=== PATIENT | female | born 1970 | race Caucasian/White ===

== ENCOUNTER 2016-10-10 17:17 | Emergency (ER) | payer OTHER ==
[2016-10-10] MEDS ORDERED: LORazepam 2 MG/ML INJ IVP ONE ×3 (17:28→19:15)
--- NOTE | 2016-10-10 17:34 | EDPHY ---
H & P HPI/ROS: This patient takes metformin and typically takes 2000 mg once -4 500 mg tabs. Today she but all for her mouth and tried to swallow and reports a feeling of esophageal impaction. She describes pain in the upper esophagus/lower pharyngeal region points to her neck. She describes the pain as peaking 8/10 crampy in nature coming in waves. She is unable to swallow fluids since the incident shortly prior to arrival. She has had some gagging but no vomiting. She thinks that she could feel 1 of the pills or upper pharynx when she tried to gag herself earlier. She now reports that she can hear the pills dissolving her Lower pharynx /upper esophagus. She has had previous esophageal impaction and history of GERD but reports that about a year ago she had upper endoscopy after a previous episode of soft stool food impaction that revealed no significant esophageal strictures, esophagitis or other abnormal findings. The patient drove herself here by private vehicle for evaluation but reports that a friend is coming to accompany her here soon. ROS: Psychiatric: Patient is anxious due to this symptom. Pulmonary: No shortness of breath or aspiration. Cardiovascular: No lightheadedness GI: No vomiting. 7 point ROS is otherwise negative. Past Medical/Surgical History: Chronic neuropathic cervical pain Type 2 diabetes Hypothyroid Smoking Status: Never smoked Physical Exam: General Appearance: Alert, no distress. Eyes: Pupils equal and round no pallor or injection. ENT, Mouth: Mucous membranes moist.Oropharynx: No visible foreign bodies erythema or dysphonia. The patient is spitting into a cup reporting that she does not feel she can swallow her secretions. I do hear the sound of dissolving pills when she opens her mouth. Respiratory: There are no retractions, lungs are clear to auscultation. Cardiovascular: Regular rate and rhythm. No murmur gallop rub Gastrointestinal: Abdomen is soft and nontender, no masses, bowel sounds normal. Neurological: GCS 15 with no focal sensory or motor deficits. Skin: Warm and dry, no rashes. Musculoskeletal: Neck is supple nontender. Extremities are symmetrical, full range of motion. Psychiatric: Mood and affect normal DIFFERENTIAL DIAGNOSIS: After history and physical exam differential diagnosis was considered for esophageal food impaction, esophageal spasm versus stricture , anxiety Constitutional: Initial Vital Signs Temperature (C) 36.7 C 10/10/16 17:23 Heart Rate 85 10/10/16 17:23 Respiratory Rate 18 06/25/17 17:23 Blood Pressure 133/88 H 10/10/16 17:23 O2 Sat (%) 95 10/10/16 17:23 O2 Delivery Mode Room Air O2 (L/minute) 2 Allergies/Adverse Reactions: Pinenuts Allergy (Uncoded 10/10/16 17:23) Home Medications: Medication Instructions Recorded Cymbalta 60 MG (RX) 04/28/14 Ethinyl Estradiol/Drospirenone 04/28/14 [Marip[place] 28 Tablet] Hydrocodone Bit/Acetaminophen 04/28/14 [Hydrocodon-Acetaminoph 7.5-750] LEVOTHYROXINE SODIUM 04/28/14 Vivance 04/28/14 oxyCODONE CR [Oxycontin] 04/28/14 Pantoprazole Sodium [Protonix 40mg 40 mg PO DAILY #14 tab 10/10/16 (*)] MDM/Departure - MDM Medications Given: Discontinued Medications Al Hydroxide/Mg Hydroxide (Maalox Susp) 30 ml PO EDNOW ONE Stop: 10/10/16 20:08 Last Admin: 10/10/16 20:09 Dose: 30 ml Glucagon (Glucagen) 1 mg IVP EDNOW ONE Stop: 10/10/16 17:55 Last Admin: 10/10/16 18:16 Dose: 1 mg Glucagon (Glucagen) 1 mg IVP ONCE ONE Stop: 10/10/16 19:05 Last Admin: 10/10/16 19:10 Dose: 1 mg Lorazepam (Ativan Injection) 1 mg IVP EDNOW ONE Stop: 10/10/16 17:29 Last Admin: 10/10/16 17:39 Dose: 1 mg Lorazepam (Ativan Injection) 1 mg IVP EDNOW ONE Stop: 10/10/16 17:53 Last Admin: 10/10/16 18:00 Dose: 1 mg Lorazepam (Ativan Injection) 1 mg IVP EDNOW ONE Stop: 10/10/16 19:16 Last Admin: 10/10/16 19:21 Dose: 1 mg Morphine Sulfate (Morphine) 4 mg IVP EDNOW ONE Stop: 10/10/16 19:17 Last Admin: 10/10/16 19:28 Dose: 4 mg ED Course/Re-evaluation: IV is established, patient is placed on O2 sat monitor and given 1 mg of Ativan IV. She reports that she has a high tolerance due to taking clonazepam 0.5 mg regularly. a repeat dose of 1 mg Ativan is given 15 minutes after the initial dose. At 6:20 twenty p.m. patient still has ongoing symptoms despite the Ativan, so I proceeded with IV glucagon -1 mg slow IV push We then proceeded with an additional 1 mg of glucagon and 4 mg of morphine still without relief. The patient still spitting secretions and reporting that she still has the esophageal pill impaction. At 10 till 8:00 p.m. I spoke with Dr. Yolette Best E -GI specialist on-call who agrees with plan to transfer the patient to [facility] Emergency Department for definitive procedure. I spoke with Dr. Barby Sheldon, emergency physician at [facility] accepts the patient for transfer shortly after this phone call, the patient had resolution of the impaction. She is able to swallow and then swallow fluids without difficulty. She is given Maalox for comfort. We canceled the plan for transfer. She will proceed home with a plan to avoid attempting to swell large objects like this in the future and follow up with GI for any ongoing symptoms. I will start a place her on Protonix for GERD. At the time discharge the patient is stable and comfortable, tolerating p.o. fluids without difficulty & her friend came to drive her home. - Depart Disposition: Home, Routine, Self-Care Clinical Impression: Esophageal pill impaction Condition: Good Instructions: Esophageal Foreign Body (ED) Additional Instructions: diagnosis: Esophageal pill impaction Plan: after medications your able swallow your pills. Plan: Avoid swelling large objects and future Protonix or Prilosec 40 mg a day for the next week or 2 Maalox for discomfort if needed Follow up with Dr. siddiqui -GI specialist for any ongoing symptoms. Prescriptions: Pantoprazole Sodium [Protonix 40mg (*)] 40 mg PO DAILY #14 tab Referrals: NONE *PRIMARY CARE P,. [Primary Care Provider] - As per Instructions Yolette Best MD [Medical Doctor] - As per Instructions
[2016-10-10] MEDS ORDERED: GLUCAGON,HUMAN RECOMBINANT 1 MG VIAL IVP ONE ×2 (17:54→19:04)
[2016-10-10 20:02] VITALS: RESP 16
[2016-10-10] MEDS ORDERED: MAG HYDROX/AL HYDROX/SIMETH 30 ML UDCUP PO ONE (20:07)
[2016-10-10 20:43] VITALS: BP 120/83; PULSE 75; TEMP 98.1; O2SAT 94
== END 2016-10-10 20:42 | disposition home or self-care (01) ==
LOC: CED 17:17
DX: T18.198A Other foreign object in esophagus causing other injury, initial encounter (principal); E11.9 Type 2 diabetes mellitus without complications; X58.XXXA Exposure to other specified factors, initial encounter
CPT/HCPCS: 96374; J1610; J2060

== ENCOUNTER 2017-02-27 10:48 | Emergency (ER) | payer OTHER ==
[2017-02-27 11:01] VITALS: RESP 18
[2017-02-27] MEDS ORDERED: IPRATROPIUM/ALBUTEROL 3 ML DEYVIAL IH ONE (11:04)
[2017-02-27] MEDS ORDERED: ACETAMINOPHEN 500 MG TAB PO ONE (11:04)
--- NOTE | 2017-02-27 11:10 | EDPHY ---
H & P Stated Complaint: fever and congestion started tuesday, fever high of 103f Time Seen by Provider: 02/27/17 10:52 HPI/ROS: Chief Complaint: Fever, cough HPI: 46-year-old woman history of asthma and possible rheumatoid arthritis presenting with 2 days of fever, worsening body aches and cough productive of greenish sputum. She usually only takes albuterol for her asthma. Is supposed to be on inhaled steroids but has not been taking them. Has measured fever to 102.8 at home. Has had generalized myalgias. Has a history of chronic pain but her pain is worse than normal. No nausea or vomiting. No chest pain. No diarrhea. No headache. ROS: 10 point Review of Systems is negative except as noted in the HPI. PMH: Asthma, chronic pain, cervical fusion, cervical radiculopathy Social History: No smoking, occasional alcohol, no recreational drug use Family History: non-contributory Physical Exam: Gen: Awake, Alert, No Distress HEENT: Nose: no rhinorrhea Eyes: PERRLA, EOMI Mouth: Moist mucosa Neck: Supple, no JVD Chest: nontender, diffuse expiratory wheezes, no focal rales or rhonchi Heart: S1, S2 normal, no murmur Abd: Soft, non-tender, no guarding Back: no CVA tenderness, no midline tenderness Ext: no edema, non-tender Skin: no rash Neuro: CN II-XII intact, Sensation grossly intact, Strength 5/5 in bilateral upper and lower extremities - Personal History LMP (Females 10-55): 22-28 Days Ago - Medical/Surgical History Hx Asthma: Yes Hx Chronic Respiratory Disease: No Hx Diabetes: No Hx Cardiac Disease: No Hx Renal Disease: No Hx Cirrhosis: No Hx Alcoholism: No Hx HIV/AIDS: No Hx Splenectomy or Spleen Trauma: No Other PMH: 2 neck fusions,2 hips surgeries,bunion surgery,heel surgery, asthma. thyroid, autoimmune infammatory arthritis, chronic nerve pain, PCO, ADHD, type 2 diabetes - Social History Smoking Status: Never smoked Constitutional: Initial Vital Signs Temperature (C) 39.4 C H 02/27/17 10:58 Heart Rate 104 H 02/27/17 10:58 Respiratory Rate 18 02/27/17 10:58 Blood Pressure 133/90 H 02/27/17 10:58 O2 Sat (%) 95 02/27/17 10:58 O2 Delivery Mode Room Air Allergies/Adverse Reactions: Pinenuts Allergy (Uncoded 10/10/16 17:23) Home Medications: Medication Instructions Recorded Cymbalta 60 MG (RX) 04/28/14 Ethinyl Estradiol/Drospirenone 04/28/14 [[place] 28 Tablet] Hydrocodone Bit/Acetaminophen 04/28/14 [Hydrocodon-Acetaminoph 7.5-750] LEVOTHYROXINE SODIUM 04/28/14 oxyCODONE CR [Oxycontin] 04/28/14 Pantoprazole Sodium [Protonix 40mg 40 mg PO DAILY #14 tab 10/10/16 (*)] AZITHROMYCIN [Z-PACK] 250 mg PO DAILY #6 tab 02/27/17 Albuterol [Proventil Inhaler HFA 1 - 2 puffs IH Q4H PRN #1 mdi 02/27/17 (*)] Clonazepam 02/27/17 Inhaler, Assist Devices [Space 1 each MC Q4H PRN #1 spacer 02/27/17 Chamber Plus] VYVANSE 02/27/17 Medical Decision Making - Diagnostics Imaging Results: Imaging Impressions Chest X-Ray 02/27/17 11:03 Impression: Right upper lobe pneumonia.. ED Course/Re-evaluation: Flu swab is negative. Chest x-ray consistent with right upper lobe pneumonia. Will start him on azithromycin. She is not hypoxemic.. She will continue on her usual asthma medications. She will follow up with primary care physician in 2-3 days for re-evaluation. - Data Points Laboratory Results: 02/27/17 02/27/17 11:05 11:05 Nasal Influenza A PCR Pending Nasal Influenza B PCR Pending Influenza A,B Rapid NEGATIVE FOR FLU (NEGATIVE) Medications Given: Discontinued Medications Acetaminophen (Tylenol) 1,000 mg PO EDNOW ONE Stop: 02/27/17 11:05 Last Admin: 02/27/17 11:07 Dose: 1,000 mg Albuterol/Ipratropium (Duoneb) 3 ml IH EDNOW ONE Stop: 02/27/17 11:05 Last Admin: 02/27/17 11:08 Dose: 3 ml Departure - Departure Disposition: Home, Routine, Self-Care Clinical Impression: Pneumonia Condition: Good Instructions: Pneumonia (ED) Additional Instructions: Alternate acetaminophen (1000 mg) with ibuprofen (400 mg) every 4 hours as needed for fevers, chills, aches or pains. Make sure to take your full course of antibiotics. You may use your albuterol inhaler with a spacer 1-2 puffs every 2-4 hours as needed for wheeze. Follow up with primary care physician in 2-3 days for re-evaluation. Return to the emergency department for increasing shortness of breath, fevers, chills, chest pain, weakness, or any other concerns. Referrals: Marlene Jenkins MD [Primary Care Provider] - As per Instructions Prescriptions: Albuterol [Proventil Inhaler HFA (*)] 1 - 2 puffs IH Q4H PRN #1 mdi PRN Reason: Wheezing AZITHROMYCIN [Z-PACK] 250 mg PO DAILY #6 tab Inhaler, Assist Devices [Space Chamber Plus] 1 each MC Q4H PRN #1 spacer PRN Reason: Wheezing
[2017-02-27] MEDS ORDERED: AZITHROMYCIN 250 MG TAB PO ONE (11:34)
[2017-02-27 14:29] VITALS: BP 112/79; PULSE 110; TEMP 101.3; O2SAT 94
== END 2017-02-27 11:53 | disposition home or self-care (01) ==
LOC: CED 10:48
DX: J18.9 Pneumonia, unspecified organism (principal); J45.909 Unspecified asthma, uncomplicated; E11.9 Type 2 diabetes mellitus without complications
CPT/HCPCS: 71020-PO; 87400-PO

== ENCOUNTER → 2017-03-30 | Outpatient (CLI) | payer OTHER | LOC: BMCIMAGING 14:04 | PROVIDERS: ATTEND Internal Medicine | DX: S02.2XXA Fracture of nasal bones, initial encounter for closed fracture (principal); J34.89 Other specified disorders of nose and nasal sinuses ==

== ENCOUNTER → 2017-05-25 | Outpatient (CLI) | payer OTHER | LOC: BMCIMAGING 14:50 | PROVIDERS: ATTEND Nurse Practitioner Adult Health | DX: R05 Cough (principal) ==

== ENCOUNTER → 2017-06-22 | Outpatient (CLI) | payer OTHER | LOC: BMCIMAGING 13:07 | PROVIDERS: ATTEND Internal Medicine | DX: M25.522 Pain in left elbow (principal) ==

== ENCOUNTER → 2018-08-23 | Outpatient (CLI) | payer OTHER | LOC: BMCIMAGING 12:24 | PROVIDERS: ATTEND Internal Medicine | DX: Z12.31 Encounter for screening mammogram for malignant neoplasm of breast (principal) ==